=== PATIENT | female | born 1985 | race Caucasian/White ===

== ENCOUNTER → 2016-11-03 | Outpatient (REF) ==
[~2016-11-03] MED LIST: MOTRIN 600600 MG/TAB PO; MOTRIN 800800 MG/TAB PO; NEXPLANON68 MG ID; PERCOCET 325 MG1 TA2 PO; PRENATAL1 TA1 PO; PRENATAL1 TA7 PO; SENOKOT S 50 MG1 TAB PO; TYLENOL W/COD1 UDTAB PO; VENTOLIN0.09 MG IH; [UNRECOGNIZED DRUG - OTHER] PO
== END ==
LOC: WSOH 15:16
DX: Z23 Encounter for immunization (principal)

== ENCOUNTER 2016-11-20 02:01 | Inpatient (IN) | payer OTHER ==
[2006-04-25 03:01] VITALS: BP 120/65
[2016-11-20] VITALS (24 sets, daily range): BP systolic 101–158; BP diastolic 55–91; PULSE 63–100; TEMP 97.9–98.3
[~2016-11-20] VITALS: Ht 165.1 cm; Wt 90.5 kg
[~2016-11-20 02:01] MED LIST changes: -MOTRIN 800800 MG/TAB PO; -PRENATAL1 TA7 PO
[2016-11-20] MEDS ORDERED: PRENATAL1 TA7 PO (02:54)
[2016-11-20 04:10] LABS: BASO # 0.1 (0.0-0.2); BASO % 0.6 % (0.0-2.0); EOS # 0.3 (0.0-0.7); EOS % 1.5 % (0-4.0); GRAN % 68.8 % (42.2-75.2); LYMPH # 3.4 (1.2-3.4); LYMPH % 19.4 % (20.0-51.0); MEAN CELL VOLUME 85 fl (80.0-100.0); MEAN CORPUSCULAR HEMOGLOBIN 28 pg (27.0-31.0); MEAN CORPUSCULAR HGB CONC 33 g/dl (33.0-37.0); MEAN PLATELET VOLUME 10.5 fl (7.4-10.4); MONO # 1.2 (0.1-0.6); MONO % 6.7 % (1.7-9.3); PLATELET COUNT 342 K/mm3 (130-400); RED BLOOD COUNT 4.22 M/mm3 (4.10-5.30); REDCELL DISTRIBUTION WIDTH-CV 13.2 % (11.5-14.5); WHITE BLOOD COUNT 17.4 K/mm3 (4.8-10.8)
[2016-11-21 02:00] VITALS: BP 122/81; PULSE 75; TEMP 97.7
[2016-11-21 07:30] VITALS: BP 97/66; PULSE 73; TEMP 97.8
[2016-11-21] MEDS ORDERED: PERCOCET 325 MG1 TA2 PO (08:15)
[2016-11-21] MEDS ORDERED: MOTRIN 800800 MG/TAB PO (08:15)
== END 2016-11-21 14:30 | disposition home or self-care (01) | DRG 775 ==
LOC: LDRO 02:01 → LDR 03:30 → OB 12:30
PROVIDERS: Obstetrics & Gynecology
PROC: 10E0XZZ Delivery of Products of Conception, External Approach (ICD-10-PCS; principal; 2016-11-20)
DX: O48.0 Post-term pregnancy (principal); Z3A.40 40 weeks gestation of pregnancy; Z37.0 Single live birth
CPT/HCPCS: J2590; J7120

== ENCOUNTER → 2017-02-10 | Outpatient (REF) ==
[~2017-02-10] MED LIST changes: +MOTRIN 800800 MG/TAB PO; +PRENATAL1 TA7 PO
== END ==
LOC: WSOH 12:30
DX: Z02.89 Encounter for other administrative examinations (principal)
CPT/HCPCS: G0463

== ENCOUNTER → 2017-02-21 | Outpatient (REF) | LOC: WSOH 16:15 | DX: Z02.89 Encounter for other administrative examinations (principal) ==

== ENCOUNTER → 2018-03-09 | Outpatient (CLI) | payer OTHER | LOC: COL.RAD 10:29 | DX: M47.817 Spondylosis without myelopathy or radiculopathy, lumbosacral region (principal); M51.26 Other intervertebral disc displacement, lumbar region ==

== ENCOUNTER → 2018-07-11 | Outpatient (CLI) | payer OTHER | LOC: MHCPAIN 08:41 | DX: G89.29 Other chronic pain (principal); M47.817 Spondylosis without myelopathy or radiculopathy, lumbosacral region; M54.16 Radiculopathy, lumbar region; M53.3 Sacrococcygeal disorders, not elsewhere classified | CPT/HCPCS: G0463 ==

== ENCOUNTER 2018-10-05 14:00 | Outpatient (RCR) | payer OTHER | END 2018-11-22 | LOC: MKS.ESL.PT | DX: M47.816 Spondylosis without myelopathy or radiculopathy, lumbar region (principal); M79.7 Fibromyalgia; Z90.89 Acquired absence of other organs ==

== ENCOUNTER → 2018-10-09 | Outpatient (CLI) | payer OTHER | LOC: MHCPAIN 08:00 | DX: G89.29 Other chronic pain (principal); M47.817 Spondylosis without myelopathy or radiculopathy, lumbosacral region; M54.16 Radiculopathy, lumbar region; M53.3 Sacrococcygeal disorders, not elsewhere classified | CPT/HCPCS: G0463 ==

== ENCOUNTER → 2018-10-25 | Outpatient (CLI) | payer OTHER | LOC: MHCPAIN 09:45 | DX: M47.817 Spondylosis without myelopathy or radiculopathy, lumbosacral region (principal); M54.16 Radiculopathy, lumbar region | CPT/HCPCS: J1040; Q9967 ==

== ENCOUNTER → 2018-12-05 | Outpatient (CLI) | payer OTHER | LOC: MHCPAIN 08:08 | DX: G89.29 Other chronic pain (principal); M47.817 Spondylosis without myelopathy or radiculopathy, lumbosacral region; M54.16 Radiculopathy, lumbar region; M53.3 Sacrococcygeal disorders, not elsewhere classified | CPT/HCPCS: G0463 ==